=== PATIENT | female | born 1965 | race Hispanic/Latino ===

== ENCOUNTER 2017-09-23 14:24 | Emergency (ER) | payer MEDICAID, OTHER ==
[2017-09-23 14:24] VITALS: BMI 24.9
[2017-09-23 14:40] VITALS: TEMP 98.8
--- NOTE | 2017-09-23 14:48 | ED PDOC ---
Arrival/HPI - General Chief Complaint: Substance Abuse Time Seen by Provider: 09/23/17 14:34 Historian: Patient - History of Present Illness Narrative History of Present Illness (Text): 09/23/17 14:44 52 year old female, whose past medical history includes heroine abuse, who presents to the Emergency department brought in by police. Patient was found wandering the streets. Patient notes last heroine use was this morning. Patient states "she wants to be with her mother", who has . Patient denies any HIV, chest pain, shortness of breath, nausea, vomiting, diarrhea, back pain, neck pain, headache, dizziness, or any other complaints. Time/Duration: Prior to Arrival Context: Walking Past Medical History - Provider Review Nursing Documentation Reviewed: Yes - Infectious Disease Hx of Infectious Diseases: None - Tetanus Immunization Tetanus Immunization: Up to Date - Cardiac Hx Hypertension: No - Pulmonary Hx Tuberculosis: No - Neurological Hx Seizures: No - Hematological/Oncological Hx Cancer: No - Musculoskeletal/Rheumatological Hx Musculoskeletal Disorders: Yes Other/Comment: SCIATICA - Genitourinary/Gynecological Hx Sexually Transmitted Diseases: No - Psychiatric Hx Depression: Yes Hx Substance Use: Yes - Surgical History Hx Appendectomy: Yes - Anesthesia Hx Anesthesia: No - Suicidal Assessment Feels Threatened In Home Enviroment: No Family/Social History - Physician Review Nursing Documentation Reviewed: Yes Family/Social History: Unknown Family HX Smoking Status: Heavy Smoker > 10 Cigarettes Daily Hx Alcohol Use: No Hx Substance Use: Yes Substance used: herion Hx Substance Use Treatment: No Allergies/Home Meds Allergies/Adverse Reactions: Allergies No Known Allergies Allergy (Verified 09/23/17 14:43) Home Medications: Home Meds Medication Instructions Recorded Confirmed Unobtainable 09/23/17 09/23/17 Review of Systems - Physician Review All systems were reviewed & negative as marked: Yes - Review of Systems Constitutional: Normal Respiratory: Normal. absent: SOB Cardiovascular: Normal Gastrointestinal: Normal Psychiatric: Depression, Suicidal Ideation Physical Exam Vital Signs Reviewed: Yes Vital Signs Temp Pulse Resp BP Pulse Ox 09/23/17 19:30 60 18 103/59 L 97 09/23/17 17:11 58 L 18 121/64 96 09/23/17 14:39 98.8 F 78 18 118/66 95 Temperature: Afebrile Blood Pressure: Normal Pulse: Regular Respiratory Rate: Normal Appearance: Positive for: Well-Appearing, Non-Toxic, Comfortable Pain Distress: None Mental Status: Positive for: Lethargic - Systems Exam Head: Present: Atraumatic, Normocephalic Pupils: Present: PERRL Extroacular Muscles: Present: EOMI Conjunctiva: Present: Normal Mouth: Present: Moist Mucous Membranes Pharnyx: No: ERYTHEMA, EXUDATE, TONSILS ENLARGED Neck: Present: Normal Range of Motion Respiratory/Chest: Present: Clear to Auscultation, Decreased Breath Sounds Cardiovascular: Present: Regular Rate and Rhythm Abdomen: No: Tenderness, Rebound, Guarding Upper Extremity: Present: Normal Inspection. No: Cyanosis, Edema Lower Extremity: Present: Normal Inspection. No: Edema Neurological: Present: GCS=15, CN II-XII Intact, Speech Normal, Motor Func Grossly Intact Skin: Present: Warm, Dry, Normal Color. No: Rashes Psychiatric: Present: Alert, Depressed Mood, Suicidal Ideation, Intoxicated, Lethargic, Other (easily aroused) Medical Decision Making ED Course and Treatment: 09/23/17 14:51 Impression: 52 year old female presents to the Emergency department brought in by police. Plan: -- UA -- Labs -- HCG Urine Stat -- EKG -- Reassess and disposition Progress Notes: 09/23/17 15:28 EKG shows normal sinus rhythm rate approximately 75 with inverted T waves laterally 09/23/17 19:55 Seen and evaluated by crisis. Patient is to denying suicidal or homicidal ideation.. She will be discharged with a diagnosis of substance abuse and given senior living information. - Lab Interpretations Lab Results: 09/23/17 16:25 09/23/17 16:25 Lab Results 09/23/17 16:38: Urine Opiates Screen Positive H, Urine Methadone Screen Negative , Ur Barbiturates Screen Negative, Ur Phencyclidine Scrn Negative, Ur Amphetamines Screen Negative, U Benzodiazepines Scrn Negative, U Oth Cocaine Metabols Positive H, U Cannabinoids Screen Negative 09/23/17 16:38: Urine Color Yellow, Urine Appearance Clear, Urine pH 6.0, Ur Specific Baldwin 1.015, Urine Protein Negative, Urine Glucose (UA) Negative, Urine Ketones Negative, Urine Blood Small H, Urine Nitrate Negative, Urine Bilirubin Negative, Urine Urobilinogen 1.0 H, Ur Leukocyte Esterase Negative, Urine RBC 5 - 10, Urine WBC 0 - 2, Ur Epithelial Cells 4 - 5, Urine Bacteria Few , Urine HCG, Qual Negative 09/23/17 16:25: Alcohol, Quantitative < 10 09/23/17 16:25: Salicylates < 1 L, Acetaminophen < 10.0 L 09/23/17 16:25: Sodium 143, Potassium 3.8, Chloride 107, Carbon Dioxide 28, Anion Gap 13, BUN 9, Creatinine 0.6 L, Est GFR ( Amer) > 60, Est GFR (Non -Af Amer) > 60, Random Glucose 120 H, Calcium 8.8, Magnesium 2.1, Total Bilirubin 0.4, AST 26, ALT 21, Alkaline Phosphatase 48, Total Creatine Kinase 96 , Total Protein 6.0, Albumin 3.3, Globulin 2.7, Albumin/Globulin Ratio 1.3 09/23/17 16:25: WBC 6.7, RBC 4.09, Hgb 11.9 L, Hct 36.1, MCV 88.3, MCH 29.1, MCHC 33.0, RDW 13.8, Plt Count 171, MPV 12.1 H, Gran % 60.5, Lymph % (Auto) 33.5 , Johnston % (Auto) 5.0, Eos % (Auto) 1.0 L, Baso % (Auto) 0.0, Gran # 4.07, Lymph # (Auto) 2.3, Johnston # (Auto) 0.3, Eos # (Auto) 0.1, Baso # (Auto) 0.00 - Scribe Statement The provider has reviewed the documentation as recorded by the Scribivory Leyva All medical record entries made by the Ibethibivory were at my direction and personally dictated by me. I have reviewed the chart and agree that the record accurately reflects my personal performance of the history, physical exam, medical decision making, and the department course for this patient. I have also personally directed, reviewed, and agree with the discharge instructions and disposition. Disposition/Present on Arrival - Present on Arrival Any Indicators Present on Arrival: No History of DVT/PE: No History of Uncontrolled Diabetes: No Urinary Catheter: No History of Decub. Ulcer: No History Surgical Site Infection Following: None - Disposition Have Diagnosis and Disposition been Completed?: Yes Diagnosis: Polysubstance abuse, Homeless Disposition: HOME/ ROUTINE Disposition Time: 19:57 Patient Plan: Discharge Condition: FAIR Discharge Instructions (ExitCare): Drug Abuse Treatment, Polysubstance Abuse Referrals: Juan Stern MD [Primary Care Provider] - Follow up with primary Forms: [employer] (Japanese)
[2017-09-23 16:37] LABS: EOS # 0.1 (0.0-0.7); GRAN # 4.07 (1.4-6.5); GRAN % 60.5 % (50.0-68.0); HEMOGLOBIN 11.9 g/dL (12.0-16.0); LYMPH # 2.3 (1.2-3.4); LYMPH % 33.5 % (22.0-35.0); MEAN CELL VOLUME 88.3 fl (80.0-105.0); MEAN CORPUSCULAR HEMOGLOBIN 29.1 pg (25.0-35.0); MEAN PLATELET VOLUME 12.1 fl (7.0-11.0); MONO # 0.3 (0.1-0.6); RBC 4.09 10^6/uL (3.5-6.1); RED CELL DISTRIBUTION WIDTH 13.8 % (11.5-14.5); WHITE BLOOD COUNT 6.7 10^3/ul (4.5-11.0)
[2017-09-23 16:42] LABS: URINE APPEARANCE CLEAR (CLEAR); URINE BILIRUBIN NEGATIVE (NEGATIVE); URINE BLOOD SMALL (NEGATIVE); URINE COLOR YELLOW (YELLOW); URINE GLUCOSE (UA) NEGATIVE (NEGATIVE); URINE LEUKOCYTE ESTERASE NEGATIVE Leu/uL (NEGATIVE); URINE PROTEIN NEGATIVE mg/dL (<30 mg/dL)
[2017-09-23 16:45] LABS: HCG,QUALITATIVE URINE NEGATIVE (NEGATIVE)
[2017-09-23 16:51] LABS: ALB/GLOB RATIO 1.3 (1.1-1.8); ALBUMIN 3.3 g/dL (3.0-4.8); ALT/SGPT 21 U/L (7-56); AST/SGOT 26 U/L (14-36); BLOOD UREA NITROGEN 9 mg/dL (7-21); CALCIUM 8.8 mg/dL (8.4-10.5); GFR AFRICAN-AMERICAN > 60; GFR NON-AFRICAN AMERICAN > 60
[2017-09-23 16:52] LABS: ACETAMINOPHEN < 10.0 ug/ml (10.0-20.0); SALICYLATE < 1 mg/dL (2.0-20.0)
[2017-09-23 16:56] LABS: URINE BACTERIA FEW (NEG); URINE WBC 0 - 2 /hpf (0-6)
[2017-09-23 17:03] LABS: BARBITURATES, UR NEGATIVE (NEGATIVE)
[2017-09-23 17:07] LABS: BENZODIAZEPINES, UR NEGATIVE (NEGATIVE); OPIATES, UR POSITIVE (NEGATIVE); PHENCYCLIDINE, UR NEGATIVE (NEGATIVE)
[2017-09-24 01:01] VITALS: BP 122/70; PULSE 78; RESP 16; O2SAT 100
--- NOTE | 2017-09-24 09:15 | CARD ---
APPROVED REPORT EKG Measurement Heart [id number] <Conclusion> Normal sinus rhythm PRWP T wave abnormality, consider lateral ischemia
== END 2017-09-24 00:59 | disposition home or self-care (01) ==
LOC: ED 14:24
DX: F19.10 Other psychoactive substance abuse, uncomplicated (principal); Z59.0 Homelessness; F17.210 Nicotine dependence, cigarettes, uncomplicated